=== PATIENT | male | born 1945 | race Caucasian/White ===

== ENCOUNTER → 2016-12-27 | Outpatient (CLI) | payer OTHER ==
--- NOTE | 2016-12-27 16:24 | DI ---
INDICATION: ITS.REASON: DIAGNOSTIC TESTING PROCEDURE: CHEST 2-VIEWS UPRIGHT (PA \T\ LAT) Encounter: Initial COMPARISON: None FINDINGS: The lungs are clear without evidence of focal abnormal airspace opacity. There is no pleural effusion or pneumothorax. Prior CABG. The heart size, mediastinal contours and pulmonary vascularity are within normal limits. Mild degenerative change in the lower thoracic spine. IMPRESSION: No acute cardiopulmonary disease. .
== END ==
LOC: IMA 16:02
DX: Z02.9 Encounter for administrative examinations, unspecified (principal)

== ENCOUNTER → 2017-01-18 | Outpatient (CLI) | payer OTHER ==
--- NOTE | 2017-01-20 13:51 | ECHOF ---
DATE OF PROCEDURE January 18, 2017 This is a two-dimensional echo with spectral Doppler, color-flow and M-mode. Left atrium is dilated. Left ventricle end-diastolic dimension is normal. Left ventricle wall thickness is increased. Left ventricular apex is akinetic and ejection fraction is about 50%. Right atrium is dilated. Right ventricle is normal. Aortic root dimension is normal. Mitral annulus is calcified. Mitral valve leaflets are normal with mild mitral regurgitation. Aortic valve shows fibrocalcific changes with no stenosis. Mild aortic insufficiency is present. Tricuspid valve shows mild tricuspid regurgitation with mild pulmonary hypertension with estimated pulmonary artery systolic pressure of 41. Pulmonary valve shows no pulmonary insufficiency. There is no pericardial effusion. IMPRESSION 1. Apical akinesia with ejection fraction of about 50%. 2. Aortic sclerosis with mild aortic insufficiency. 3. Mitral annulus calcification with mild mitral regurgitation. 4. Mild left ventricular hypertrophy. 5. Biatrial dilation. 6. Mild tricuspid regurgitation with mild pulmonary hypertension with estimated pulmonary artery systolic pressure of 41. MTDD
== END ==
LOC: IMA 13:08
DX: Z02.9 Encounter for administrative examinations, unspecified (principal)
CPT/HCPCS: 93306